=== PATIENT | female | born 1945 | race Caucasian/White ===

== ENCOUNTER 2021-10-21 14:57 | Outpatient (CLI) | payer MEDICARE | END 2021-10-21 14:58 | disposition home or self-care (01) | LOC: CSHMAMMO 14:57 | PROVIDERS: ATTEND Internal Medicine | DX: Z53.9 Procedure and treatment not carried out, unspecified reason (principal) ==

== ENCOUNTER 2021-10-22 08:53 | Outpatient (CLI) | payer MEDICARE | END 2021-10-22 08:54 | disposition home or self-care (01) | LOC: CSHMAMMO 08:53 | PROVIDERS: ATTEND Internal Medicine | DX: R92.8 Other abnormal and inconclusive findings on diagnostic imaging of breast (principal) | CPT/HCPCS: 77066; G0279 ==

== ENCOUNTER 2022-10-26 09:06 | Outpatient (CLI) | payer MEDICARE | END 2022-10-26 09:07 | disposition home or self-care (01) | LOC: CSHMAMMO 09:06 | PROVIDERS: ATTEND Internal Medicine | DX: Z12.31 Encounter for screening mammogram for malignant neoplasm of breast (principal); Z80.3 Family history of malignant neoplasm of breast | CPT/HCPCS: 77063; 77067 ==

== ENCOUNTER 2023-06-24 09:27 | Outpatient (CLI) | payer MEDICARE | END 2023-06-24 09:28 | disposition home or self-care (01) | LOC: CSHRAD 09:27 | PROVIDERS: ATTEND Internal Medicine | DX: J20.9 Acute bronchitis, unspecified (principal) | CPT/HCPCS: 71046 ==

== ENCOUNTER 2023-10-28 09:18 | Outpatient (CLI) | payer MEDICARE | END 2023-10-28 09:19 | disposition home or self-care (01) | LOC: CSHMAMMO 09:18 | PROVIDERS: ATTEND Internal Medicine | DX: Z12.31 Encounter for screening mammogram for malignant neoplasm of breast (principal); Z80.3 Family history of malignant neoplasm of breast | CPT/HCPCS: 77063; 77067 ==

== ENCOUNTER 2024-10-31 10:35 | Outpatient (CLI) | payer MEDICARE | END 2024-10-31 10:36 | disposition home or self-care (01) | LOC: CSHMAMMO 10:35 | PROVIDERS: ATTEND Internal Medicine | DX: Z12.31 Encounter for screening mammogram for malignant neoplasm of breast (principal); Z80.3 Family history of malignant neoplasm of breast | CPT/HCPCS: 77063; 77067 ==

== ENCOUNTER 2025-10-24 12:09 | Outpatient (CLI) | payer MEDICARE | END 2025-10-24 12:10 | disposition home or self-care (01) | LOC: CSHRAD 12:09 | DX: M25.561 Pain in right knee (principal) ==

== ENCOUNTER 2025-11-01 11:26 | Outpatient (CLI) | payer MEDICARE | END 2025-11-01 11:27 | disposition home or self-care (01) | LOC: CSHMAMMO 11:26 | PROVIDERS: ATTEND Internal Medicine | DX: Z12.31 Encounter for screening mammogram for malignant neoplasm of breast (principal); Z80.3 Family history of malignant neoplasm of breast | CPT/HCPCS: 77063; 77067 ==